=== PATIENT | female | born 2000 | race African-American/Black ===

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

== ENCOUNTER 2018-01-12 11:44 | Emergency (ER) | payer SELFPAY ==
[2018-01-12 12:01] LABS: Clarity Cloudy (Clear)
[2018-01-12 12:02] LABS: Bilirubin Negative (Negative); Blood, Urine Negative (Negative); Glucose, Urine (Dipstick) Negative (Negative); Leukocyte Negative (Negative); Nitrite Negative (Negative); Protein, Urine (Dipstick) Negative (Neg-Trace); Urobilinogen 0.2 mg/dL (0.2-1.0)
[2018-01-12 12:22] LABS: Pregnancy Test - Urine (BHCG) Negative (Negative); Pregu Control Background? CLEAR/WHITE (CLR/WHITE); Pregu Control Bar Appear? YES (CONTROL BAR)
== END 2018-01-12 12:15 | disposition home or self-care (01) ==
LOC: BURERS 11:44
DX: R10.31 Right lower quadrant pain (principal)
CPT/HCPCS: 81003; 81025; 87491; 87591; 99284

== ENCOUNTER 2018-09-05 15:44 | Emergency (ER) | payer SELFPAY ==
--- NOTE | 2018-09-05 17:19 | CT ---
CT OF THE BRAIN WITHOUT CONTRAST: 09/05/18 The ventricles are normal in size with no shift. No intracranial bleeding or extra-axial hematoma was seen. There is no evidence of mass, stroke, or edema. IMPRESSION: No acute intracranial findings. POS: HOME
== END 2018-09-05 16:25 | disposition home or self-care (01) ==
LOC: BURERS 15:44
DX: S06.0X0A Concussion without loss of consciousness, initial encounter (principal); W18.30XA Fall on same level, unspecified, initial encounter
CPT/HCPCS: 70450

== ENCOUNTER 2023-02-20 21:30 | Emergency (ER) | payer SELFPAY ==
[2023-02-20] MEDS ORDERED: Lidocaine 1% w/Epinephrine 1:100K 50 ML VIAL ONE (21:46)
[2023-02-20] MEDS ORDERED: Boostrix 0.5 ML (Tdap) VIAL (>/=7 yrs of age) ONE (21:50)
== END 2023-02-20 22:21 | disposition home or self-care (01) ==
LOC: BURERS 21:30
DX: S41.111A Laceration without foreign body of right upper arm, initial encounter (principal); Z23 Encounter for immunization; W26.8XXA Contact with other sharp object(s), not elsewhere classified, initial encounter; Y92.019 Unspecified place in single-family (private) house as the place of occurrence of the external cause
CPT/HCPCS: 12002; 90471; 90715

== ENCOUNTER 2023-08-13 21:23 | Emergency (ER) | payer SELFPAY ==
[2023-08-13 22:10] LABS: Bilirubin Small (Negative); Blood, Urine Large (Negative); Clarity Clear (Clear); Glucose, Urine (Dipstick) Negative (Negative); Ketone, Urine Trace mg/dL (Negative); Leukocyte Moderate (Negative); Nitrite Negative (Negative); Protein, Urine (Dipstick) 100 mg/dL (Neg-Trace); Specific Gravity, Urine 1.025 (1.005-1.030)
[2023-08-13 22:21] LABS: Bacteria/HPF Rare-Few HPF (None Seen); CAUTI Indications for Culture Dysuria,urgency,freq; Squamous Epithelial 0-3 HPF (0-3); WBC/HPF 21-50 HPF (0-3)
[2023-08-13 22:22] LABS: Pregnancy Test - Urine (BHCG) Negative (Negative); Pregu Control Background? CLEAR/WHITE (CLR/WHITE); Pregu Control Bar Appear? YES (CONTROL BAR); Specific Gravity 1.025 (1.002-1.036)
[2023-08-13 22:23] LABS: Urine Culture Reflex Yes Yes
[2023-08-13] MEDS ORDERED: Phenazopyridine HCl 95 MG TAB ONE (22:28)
[2023-08-13] MEDS ORDERED: Cephalexin 250 MG CAP ONE (22:28)
== END 2023-08-13 22:58 | disposition home or self-care (01) ==
LOC: BURERS 21:23
DX: N39.0 Urinary tract infection, site not specified (principal); R31.9 Hematuria, unspecified
CPT/HCPCS: 81001; 81025; 87077; 87086; 99283

== ENCOUNTER 2024-10-21 09:58 | Emergency (ER) | payer OTHER, SELFPAY | END 2024-10-21 10:51 | disposition home or self-care (01) | LOC: BURERS 09:58 | DX: J06.9 Acute upper respiratory infection, unspecified (principal); B34.9 Viral infection, unspecified; F17.220 Nicotine dependence, chewing tobacco, uncomplicated | CPT/HCPCS: 87428; 99283 ==